=== PATIENT | male | born 1975 | race Caucasian/White ===

== ENCOUNTER 2017-10-02 07:17 | Emergency (ER) | payer OTHER ==
[2017-10-02 07:50] VITALS: BP 154/72; PULSE 80; TEMP 98; BMI 39.8
[2017-10-02] MEDS ORDERED: CYCLOBENZAPRINE HCL 10 MG TABLET (FP) ONE (08:17)
[2017-10-02] MEDS ORDERED: CYCLOBENZAPRINE HCL 10 MG TABLET (FP) PO ONE (08:18)
--- NOTE | 2017-10-02 08:18 | PDOC ---
History of Present Illness - General Chief Complaint: Back Pain Stated Complaint: BACK PAIN Time Seen by Provider: 10/02/17 08:09 History Source: Patient Exam Limitations: No Limitations - History of Present Illness Initial Comments: 10/02/17 08:22 Patient came to emergency department with "I pulled my back out again". bent over to lift heavy 5 gallon jug of water 2 days ago and felt an acute onset of pain to his lower mid back. had MRI a few years ago and was told had degenerative disease but no true disc injury. has intermittent episodes of this spasm and states usually hydrocodone and rest resolved. Denies numbness or tingling to feet, denies any problems with bowel or bladder. Has taken ibuprofen 600 mg this morning Severity: reports: mild, moderate Pain Location: reports: back Method of Injury: Yes: unknown Associated Symptoms (Fall): denies symptoms Past History - Travel Traveled outside of the country in the last 30 days: No Close contact w/someone who was outside of country & ill: No - Past Medical History Allergies/Adverse Reactions: Allergies Allergy/AdvReac Type Severity Reaction Status Date / Time No Known Allergies Allergy Verified 10/02/17 07:41 Home Medications: Ambulatory Orders Acetaminophen W/ Codeine #3 [Tylenol # 3] 2 combo PO Q6H #10 tablet MDD 6 Aspirin [ASA -] 81 mg PO DAILY 10/02/17 Cyclobenzaprine HCl [Flexeril 10 mg] 10 mg PO BID PRN #14 tablet 10/02/17 Hydrochlorothiazide [Hctz -] 25 mg PO DAILY 10/02/17 Metoprolol Succinate [Toprol Xl] 100 mg PO DAILY 10/02/17 Cardiac Disorders: Yes (A-fib) COPD: No HTN: Yes Hypercholesterolemia: Yes - Surgical History Abdominal Surgery: Yes (umbilical Hernia) - Immunization History Immunization Up to Date: Yes - Suicide/Smoking/Psychosocial Hx Smoking History: Never smoked Have you smoked in the past 12 months: No Information on smoking cessation initiated: No Hx Alcohol Use: No Drug/Substance Use Hx: No Substance Use Type: None Trauma Specific PMHX - Complaint Specific PMHX Back Injury: Yes Neck Injury: Yes Review of Systems - Review of Systems Able to Perform ROS?: Yes Is the patient limited Citizen Of [place] proficient: Yes Constitutional: Yes: Symptoms Reported, See HPI, Malaise HEENTM: Yes: Symptoms Reported, See HPI Respiratory: Yes: Symptoms reported Musculoskeletal: Yes: Symptoms Reported, See HPI, Back Pain, Muscle Pain *Physical Exam - Vital Signs Last Vital Signs Temp Pulse Resp BP Pulse Ox 98.0 F 80 17 154/72 98 10/02/17 07:41 10/02/17 07:41 10/02/17 07:41 10/02/17 07:41 10/02/17 07:41 - Physical Exam General Appearance: Yes: Nourished, Appropriately Dressed, Apparent Distress, Mild Distress, Moderate Distress HEENT: positive: JOSIANE, Normal ENT Inspection, TMs Normal, Pharynx Normal Neck: positive: Supple. negative: Tender Respiratory/Chest: positive: Lungs Clear Cardiovascular: positive: Regular Rate Gastrointestinal/Abdominal: positive: Soft Musculoskeletal: positive: Muscle Spasm (palpable spasm noted to the paravertebral spinous muscles worse on the left than the right. Has no true spine tenderness, range of motion limited secondary to this tenderness. Neurovascular intact to feet) Extremity: positive: Normal Inspection, Normal Range of Motion (walks slowly) Integumentary: positive: Normal Color, Dry, Warm, Pale Progress Note - Progress Note Progress Note: Back strain, will treat with NSAIDs and cyclobenzaprine Medical Decision Making - Medical Decision Making 10/02/17 13:03 Patient called to state his pain Has not resolved and that medications had not been received by pharmacy. FOund had been registered incorrectely - prescription resent for Tylenol #3/ and Cyclobenzaprione. 10/02/17 14:04 10/02/17 14:05 *DC/Admit/Observation/Transfer Diagnosis at time of Disposition: Strain of mid-back Qualifiers: Encounter type: initial encounter Qualified Code(s): S29.012A - Strain of muscle and tendon of back wall of thorax, initial encounter - Discharge Dispostion Disposition: HOME Condition at time of disposition: Stable Admit: No - Prescriptions Prescriptions: Acetaminophen W/ Codeine #3 [Tylenol # 3] 2 combo PO Q6H #10 tablet MDD 6 Cyclobenzaprine HCl [Flexeril 10 mg] 10 mg PO BID PRN #14 tablet PRN Reason: spasm - Referrals Referrals: Mannie Gutierrez MD [Primary Care Provider] - - Patient Instructions Printed Discharge Instructions: DI for Back Strain or Sprain Additional Instructions: Rest, no heavy lifting or exercise until pain is resolved Hot soaks to neck and low back as often as possible/hot showers or Jacuzzis No massage or therapy until spasm is gone Continue ibuprofen 2-200 mg tablets every 6 hours for the next 3 days then as needed for pain and swelling Cyclobenzaprine 1-10mg every 8 hours as needed for spasm If not significant improvement within 24 hours with medication and rest regime, followup with private physician for change in medications and /or therapy. - Post Discharge Activity Forms/Work/School Notes: Back to Work
== END 2017-10-02 08:31 | disposition home or self-care (01) ==
LOC: JER 07:17 → JERFT 07:17
DX: S29.012A Strain of muscle and tendon of back wall of thorax, initial encounter (principal); X50.0XXA Overexertion from strenuous movement or load, initial encounter; Y93.89 Activity, other specified; Y92.89 Other specified places as the place of occurrence of the external cause; Y99.0 Civilian activity done for income or pay
CPT/HCPCS: 99281-25